=== PATIENT | male | born 1945 | race Caucasian/White ===

== ENCOUNTER 2016-12-01 12:13 | Outpatient (CLI) | payer OTHER ==
--- NOTE | 2016-12-07 13:39 | DIAGNOSTIC IMAGING REPORT ---
PROCEDURE: NM CARDIAC STRESS TEST REFERRING PHYSICIAN/PROVIDER: Paolo Mckeon MD CONSULTING INTENSIVE CARE UNIT REGISTERED NURSE: Chris Little MD PROCEDURE PERFORMED: Single-day sestamibi CLINICAL INDICATIONS: Chest pressure, shortness of breath LEXISCAN PORTION: Please see separate report. SINGLE-DAY SESTAMIBI INTERPRETATION: 10 mCi of technetium-99m labeled sestamibi was injected at rest with SPECT tomography performed. Some time later the patient underwent Lexiscan stress with 29 mCi of technetium-99m labeled sestamibi injected 20 seconds after the injection of Lexiscan with SPECT tomography performed. Rest and stress images were then compared. The LV was seen to be normal in size with an end diastolic volume of 74 mL and an end systolic volume of 23 mL. The LV with stress exhibits no ischemic defects. Computer assessed ejection fraction was 69% with normal contraction. COMPARISON: None IMPRESSION: 1. Normal myocardial perfusion. 2. Normal left ventricular size and systolic function. 3. These results suggest a low risk profile for major coronary ischemic events.
--- NOTE | 2016-12-07 13:39 | DIAGNOSTIC IMAGING REPORT ---
PROCEDURE: NM CARDIAC STRESS TEST REFERRING PHYSICIAN/PROVIDER: Paolo Mckeon MD CONSULTING DEBONE SUPERVISOR: Chris Little MD PROCEDURE PERFORMED: Single-day sestamibi CLINICAL INDICATIONS: Chest pressure, shortness of breath LEXISCAN PORTION: Please see separate report. SINGLE-DAY SESTAMIBI INTERPRETATION: 10 mCi of technetium-99m labeled sestamibi was injected at rest with SPECT tomography performed. Some time later the patient underwent Lexiscan stress with 29 mCi of technetium-99m labeled sestamibi injected 20 seconds after the injection of Lexiscan with SPECT tomography performed. Rest and stress images were then compared. The LV was seen to be normal in size with an end diastolic volume of 74 mL and an end systolic volume of 23 mL. The LV with stress exhibits no ischemic defects. Computer assessed ejection fraction was 69% with normal contraction. COMPARISON: None IMPRESSION: 1. Normal myocardial perfusion. 2. Normal left ventricular size and systolic function. 3. These results suggest a low risk profile for major coronary ischemic events.
== END 2016-12-01 23:00 ==
LOC: NM SRH 12:13
PROC: 4A02X4A Measurement of Cardiac Electrical Activity, Guidance, External Approach (ICD-10-PCS; principal; 2016-12-01)
PROC: 3E073KZ Introduction of Other Diagnostic Substance into Coronary Artery, Percutaneous Approach (ICD-10-PCS; 2016-12-01)
DX: R06.02 Shortness of breath (principal); R07.9 Chest pain, unspecified